=== PATIENT | female | born 1940 | race Caucasian/White ===

== ENCOUNTER 2019-04-21 17:49 | Emergency (ER) | payer OTHER ==
[~2019-04-21] VITALS: Ht 162.6 cm; Wt 56.7 kg
[~2019-04-21 17:49] MED LIST: AMOX1TAB49 PO; HYDR-4354 PO; HYDR-507 PO; ONDA8TAB9 SL; SERT50TA PO; SIMV-49 PO; SULF1TAB44 PO
--- NOTE | 2019-04-21 18:03 | NUR ---
Patient ambulated with stable gait. Speech is clear, speaks in complete sentences. A/Ox4. Patient came for c/o right thumb injury when gardening. She swung and hit her hand on a hard object at around 1330 today. Patient reports taking some pain medication that she cannot recall, about 800mg ibuprofen, and some anti-inflammatory that she cannot recall as well at around 1700 today. Patient denies any numbness or tingling in her right thumb, but does have pain about 6/10 when not moving, and 10/10 when moving the digit. Patient in bed at lowest position, sr upx2, call light within reach. at bedside accompanying patient.
[2019-04-21] MEDS ORDERED: HYDROCODONE/APAP 5-325MG TABLET ONE (18:14)
[2019-04-21] MEDS ORDERED: HYDROCODONE/APAP 5-325MG TABLET PO ONE (18:15)
--- NOTE | 2019-04-21 18:49 | NUR ---
Patient put in a right thumb spica cast. CMS intact, pulses palpable. Instructed patient that if it gets too tight she may readjust as needed.
[2019-04-21 18:50] VITALS: BP 145/63
--- NOTE | 2019-04-21 18:50 | NUR ---
Patient discharged to home in stable conditon. Written and verbal after care instructions given. Patient verbalizes understanding of instructions. Patient ambulated with stable gait.
== END 2019-04-21 18:51 | disposition home or self-care (01) ==
LOC: ER 17:51
DX: S62.501A Fracture of unspecified phalanx of right thumb, initial encounter for closed fracture (principal); J44.9 Chronic obstructive pulmonary disease, unspecified; Z79.899 Other long term (current) drug therapy; W22.8XXA Striking against or struck by other objects, initial encounter; Y93.89 Activity, other specified; Y92.89 Other specified places as the place of occurrence of the external cause; Y99.8 Other external cause status
CPT/HCPCS: 73130; A4663

== ENCOUNTER 2021-07-15 11:52 | Emergency (ER) | payer OTHER ==
[~2021-07-15] VITALS: Ht 162.6 cm; Wt 65.8 kg
--- NOTE | 2021-07-15 12:00 | NUR ---
Patient ambulatory, alert and orientedx4 with complaints of on and off chest pain for 2 weeks, sharp pain 7/10 radiating to mid back. Vitals; BP-156/88 VT-72 RR-19 T-97 SPO2-97% RA
--- NOTE | 2021-07-15 12:03 | NUR ---
MD at bedside, medical screening exam in progress.
[2021-07-15] MEDS ORDERED: IOHEXOL 350 100 ML INFUS..BTL ONE (12:28)
[2021-07-15] MEDS ORDERED: IV NORMAL SALINE 250 ML IV ONE (12:28)
[2021-07-15] MEDS ORDERED: SWABABLE VALVE TRANSFER SET EA MC ONE (12:28)
[2021-07-15] MEDS ORDERED: IV NORMAL SALINE 1000 ML BAG IV ONE (12:30)
[2021-07-15] MEDS ORDERED: MORPHINE SULFATE 2 MG/1 ML DISP.SYRIN IV ONE (12:30)
[2021-07-15] MEDS ORDERED: ONDANSETRON 4 MG/2 ML VIAL IV ONE (12:30)
[2021-07-15] MEDS ORDERED: ONDANSETRON 4 MG/2 ML VIAL ONE (12:36)
[2021-07-15] MEDS ORDERED: MORPHINE SULFATE 4 MG/1 ML DISP.SYRIN ONE (12:36)
[2021-07-15 12:39] LABS: HEMATOCRIT 36.8 % (31.2-41.9); MEAN CORPUSCULAR HEMOGLOBIN 28.7 uug (24.7-32.8); MEAN CORPUSCULAR VOLUME 85.6 fL (75.5-95.3); PLATELET COUNT (AUTO) 219 K/uL (179-408)
[2021-07-15 12:48] LABS: CARBON DIOXIDE 28 mmol/L (21-32); CHLORIDE 102 mmol/L (98-107); CREATININE 0.6 mg/dL (0.6-1.3); GLUCOSE 93 mg/dL (74-106); POTASSIUM 4.2 mmol/L (3.5-5.1); UREA NITROGEN, BLOOD 12 mg/dL (7-18)
[2021-07-15 12:57] LABS: ALANINE AMINOTRANSFERASE 20 U/L (14-59); ALKALINE PHOSPHATASE 91 U/L (50-136); ASPARTATE AMINOTRANSFERASE 13 U/L (15-37); BILIRUBIN,DIRECT 0.1 mg/dL (0.0-0.2); BILIRUBIN,TOTAL 0.2 mg/dL (0.2-1.0); LIPASE 100 U/L (73-393); TOTAL PROTEIN, SERUM 6.8 g/dL (6.4-8.2)
[2021-07-15] MEDS ORDERED: HYDROMORPHONE 1 MG/1 ML DISP.SYRIN ONE (13:00)
[2021-07-15] MEDS ORDERED: HYDROMORPHONE 1 MG/1 ML DISP.SYRIN IV ONE (13:00)
[2021-07-15 13:24] LABS: *BILIRUBIN,URIN NEGATIVE (NEGATIVE); *BLOOD, URINE 1+ (NEGATIVE); *CLARITY,URINE CLEAR (CLEAR); *COLOR,URINE YELLOW (YELLOW); *KETONES,URINE NEGATIVE (NEGATIVE); *UROBILINOGEN,URINE 0.2 E.U./dl (NORMAL); LEUKOCYTE ESTERASE ,URINE NEGATIVE (NEGATIVE); NITRITE, URINE NEGATIVE (NEGATIVE); UGLUCOSE NEGATIVE (NEGATIVE)
--- NOTE | 2021-07-15 13:30 | NUR ---
Patient current spo2 sat 96-97% RA.
[2021-07-15] MEDS ORDERED: HYDR-3980 PO (14:10)
[2021-07-15] MEDS ORDERED: CALC3.8S BNOSTRILS (14:10)
[2021-07-15] MEDS ORDERED: KETOROLAC TROMETHAMINE 15 MG INJ ONE (14:15)
[2021-07-15] MEDS ORDERED: KETOROLAC TROMETHAMINE 15 MG INJ IVP ONE (14:15)
--- NOTE | 2021-07-15 14:30 | NUR ---
Patient discharged to home in stable condition. Written and verbal after care instructions given. Patient verbalizes understanding of instructions. Stressed follow up or return to ER for worsening s/s. IV line removed aseptically.
[2021-07-15 14:34] VITALS: BP 131/80
[2021-07-15 18:04] LABS: BACTERIA,URINE NONE SEEN /HPF (NONE SEEN); SQUAMOUS EPITHELIAL CELL,UR NONE SEEN /HPF (NONE SEEN); WBC,URINE 0-3 /HPF (0-3)
== END 2021-07-15 14:35 | disposition home or self-care (01) ==
LOC: ER 11:52
DX: M48.54XA Collapsed vertebra, not elsewhere classified, thoracic region, initial encounter for fracture (principal); R93.2 Abnormal findings on diagnostic imaging of liver and biliary tract; Z82.49 Family history of ischemic heart disease and other diseases of the circulatory system; Z90.49 Acquired absence of other specified parts of digestive tract; J44.9 Chronic obstructive pulmonary disease, unspecified; M19.90 Unspecified osteoarthritis, unspecified site
CPT/HCPCS: 36415; 71275; 74174; 80048; 80076; 81001; 83690; 84484; 85025; 85730; 93005; 96361; 96374; 96375; 99285; J1170; J1885; J2270; J2405; J7040; Q9967; A4663

== ENCOUNTER 2023-03-31 16:58 | Emergency (ER) | payer OTHER ==
[~2023-03-31] VITALS: Ht 165.1 cm; Wt 56.7 kg
[~2023-03-31 16:58] MED LIST changes: +CALC3.8S BNOSTRILS; +HYDR-3980 PO
[2023-03-31] MEDS ORDERED: UMEC1BLS IH (18:07)
[2023-03-31] MEDS ORDERED: ALBU0.63 NEB (18:07)
[2023-03-31] MEDS ORDERED: SIMV-46 PO (18:07)
[2023-03-31] MEDS ORDERED: IPRATROPIUM BROMIDE 0.5 MG/2.5 ML NEBU NEB ONE (18:15)
[2023-03-31] MEDS ORDERED: ALBUTEROL SULFATE 2.5 MG/3 ML NEBU NEB ONE (18:15)
[2023-03-31] MEDS ORDERED: methylPREDNISolone SOD SUCC 125 MG/2 ML VIAL IV ONE (18:15)
[2023-03-31] MEDS ORDERED: ALBUTEROL SULFATE 2.5 MG/3 ML NEBU ONE (18:23)
[2023-03-31] MEDS ORDERED: IPRATROPIUM BROMIDE 0.5 MG/2.5 ML NEBU ONE (18:23)
[2023-03-31 18:25] VITALS: O2SAT 95
[2023-03-31 18:38] VITALS: O2SAT 100
[2023-03-31 18:47] LABS: BASOPHILS % (AUTO) 0.2 % (0.0-2.0); EOSINOPHILS % (AUTO) 0.1 % (0.0-7.0); HEMATOCRIT 37.8 % (31.2-41.9); HEMOGLOBIN 12.5 g/dL (10.9-14.3); LYMPHOCYTES # (AUTO) 2.4 K/uL (0.8-4.8); LYMPHOCYTES % (AUTO) 32.6 % (20.5-51.5); MEAN CORPUSCULAR HEMOGLOBIN 29.1 uug (24.7-32.8); MEAN CORPUSCULAR HGB CONC 33 g/dL (32.3-35.6); MEAN CORPUSCULAR VOLUME 87.7 fL (75.5-95.3); MONOCYTES # (AUTO) 0.5 K/uL (0.1-1.30); MONOCYTES % (AUTO) 6.3 % (0.0-11.0); NEUTROPHILS # (AUTO) 4.4 K/uL (1.8-8.9); NEUTROPHILS % (AUTO) 60.8 % (38.5-71.5); PLATELET COUNT (AUTO) 182 K/uL (179-408); RED BLOOD CELL COUNT(AUTO) 4.31 MIL/uL (3.63-4.92); RED CELL DISTRIBUTION WIDTH 13.9 % (12.3-17.7); WHITE BLOOD COUNT (AUTO) 7.2 K/uL (3.8-11.8)
[2023-03-31 18:57] LABS: CALCIUM 9.4 mg/dL (8.5-10.1); CARBON DIOXIDE 30 mmol/L (21-32); CHLORIDE 103 mmol/L (98-107); CREATININE 0.7 mg/dL (0.6-1.3); GLUCOSE 111 mg/dL (74-106); POTASSIUM 4.5 mmol/L (3.5-5.1); SODIUM SERUM 138 mmol/L (136-145); UREA NITROGEN, BLOOD 18 mg/dL (7-18)
[2023-03-31 19:13] LABS: ALANINE AMINOTRANSFERASE 30 U/L (14-59); ALBUMIN 3.6 g/dL (3.4-5.0); ALKALINE PHOSPHATASE 73 U/L (50-136); ASPARTATE AMINOTRANSFERASE 18 U/L (15-37); BILIRUBIN,TOTAL 0.1 mg/dL (0.2-1.0); NT-PRO BNP 316 pg/mL (0-125); TOTAL PROTEIN, SERUM 7.6 g/dL (6.4-8.2)
[2023-03-31 19:14] LABS: BILIRUBIN,DIRECT < 0.1 mg/dL (0.0-0.2)
[2023-03-31] MEDS ORDERED: methylPREDNISolone SOD SUCC 125 MG/2 ML VIAL ONE (19:42)
[2023-03-31] MEDS ORDERED: PRED20TA PO (22:20)
[2023-03-31] MEDS ORDERED: BENZ-13 PO (22:20)
[2023-03-31] MEDS ORDERED: GUAI5SYR PO (22:20)
[2023-03-31 22:28] VITALS: BP 141/73; O2SAT 97
== END 2023-03-31 22:31 | disposition home or self-care (01) ==
LOC: ER 17:04
DX: J20.9 Acute bronchitis, unspecified (principal); J44.0 Chronic obstructive pulmonary disease with (acute) lower respiratory infection; J44.1 Chronic obstructive pulmonary disease with (acute) exacerbation; R05.9 Cough, unspecified; R03.0 Elevated blood-pressure reading, without diagnosis of hypertension; F41.9 Anxiety disorder, unspecified; Z90.49 Acquired absence of other specified parts of digestive tract; Z79.899 Other long term (current) drug therapy
CPT/HCPCS: 36415; 71045; 83605; 84484; 85025; 87040; 93005; A4606; A4663; J2930; J3590